=== PATIENT | female | born 1995 | race Caucasian/White ===

== ENCOUNTER 2023-10-12 21:50 | Emergency (ER) | payer OTHER ==
[~2023-10-12] VITALS: Ht 162.6 cm; Wt 54.4 kg
[2023-10-12] MEDS ORDERED: PANTOPRAZOLE 40 MG VIAL ONE (22:07)
[2023-10-12] MEDS ORDERED: ONDANSETRON HCL/PF 4 MG/2 ML VIAL ONE (22:07)
[2023-10-12] MEDS: IV NS 0.9% 1,000 ML BAG IV ONE (22:14)
[2023-10-12] MEDS: PANTOPRAZOLE 40 MG VIAL IV ONE (22:15)
[2023-10-12] MEDS: ONDANSETRON HCL/PF 4 MG/2 ML VIAL IVP ONE (22:15)
[2023-10-12 22:52] VITALS: BP 122/75; TEMP 98.2; O2SAT 98
== END 2023-10-12 23:56 | disposition home or self-care (01) ==
LOC: ER 21:58
DX: K21.9 Gastro-esophageal reflux disease without esophagitis (principal); R11.2 Nausea with vomiting, unspecified
CPT/HCPCS: 99284; 96374; 96361; 96375; J2405; J7030; C9113

== ENCOUNTER 2024-01-28 12:35 | Emergency (ER) | payer OTHER ==
[~2024-01-28] VITALS: Ht 165.1 cm; Wt 61.2 kg
[2024-01-28 14:20] VITALS: BP 122/58; TEMP 98; O2SAT 97
== END 2024-01-28 14:20 | disposition left against medical advice (07) ==
LOC: ER 12:40
DX: R07.89 Other chest pain (principal); K21.9 Gastro-esophageal reflux disease without esophagitis

== ENCOUNTER 2024-07-03 16:39 | Emergency (ER) | payer OTHER ==
[~2024-07-03] VITALS: Ht 165.1 cm; Wt 59.9 kg
[2024-07-03 16:52] VITALS: BP 115/73; TEMP 98.6; O2SAT 99
[2024-07-03] MEDS ORDERED: PSEU-182 PO (17:01)
[2024-07-03] MEDS ORDERED: BENZ-13 PO (17:01)
== END 2024-07-03 18:08 | disposition home or self-care (01) ==
LOC: ER 17:15
DX: J06.9 Acute upper respiratory infection, unspecified (principal); K21.9 Gastro-esophageal reflux disease without esophagitis; R50.9 Fever, unspecified; R09.81 Nasal congestion; R05.9 Cough, unspecified; Z20.822 Contact with and (suspected) exposure to COVID-19

== ENCOUNTER 2024-10-11 14:57 | Emergency (ER) | payer OTHER ==
[~2024-10-11] VITALS: Ht 165.1 cm; Wt 59.0 kg
[~2024-10-11 14:57] MED LIST: BENZ-13 PO; PSEU-182 PO
[2024-10-11 15:11] VITALS: BP 105/71; TEMP 101.9
[2024-10-11] MEDS ORDERED: AMOX500T2 PO (15:25)
[2024-10-11 15:35] VITALS: O2SAT 99
== END 2024-10-11 15:32 | disposition home or self-care (01) ==
LOC: ER 15:00
DX: J02.9 Acute pharyngitis, unspecified (principal); R50.9 Fever, unspecified; R09.81 Nasal congestion; Z79.899 Other long term (current) drug therapy
CPT/HCPCS: 86403-TC; 87070-TC